=== PATIENT | male | born 1990 | race Hispanic/Latino ===

== ENCOUNTER 2018-06-26 10:52 | Outpatient (CLI) | payer OTHER | END 2018-06-26 10:53 | disposition home or self-care (01) | LOC: C.EKG 10:52 ==

== ENCOUNTER 2018-06-26 11:00 | Outpatient (CLI) | payer OTHER | END 2018-06-26 11:01 | disposition home or self-care (01) | LOC: C.LAB 11:00 | DX: Z23 Encounter for immunization (principal); Z00.00 Encounter for general adult medical examination without abnormal findings; Z13.220 Encounter for screening for lipoid disorders; Z13.29 Encounter for screening for other suspected endocrine disorder; Z11.59 Encounter for screening for other viral diseases; Z11.3 Encounter for screening for infections with a predominantly sexual mode of transmission ==